=== PATIENT | female | born 1960 | race Caucasian/White ===

== ENCOUNTER 2022-07-25 06:27 | Day surgery (SDC) | payer BC ==
[2022-07-24 09:52] VITALS: BMI 28.3
[2022-07-25] MEDS ORDERED: Lidocaine 1% (PF) 30 ML VIAL ONE (07:11)
[2022-07-25] MEDS ORDERED: Midazolam HCl 2 mg/2 ml Vial ONE (07:59)
[2022-07-25] MEDS ORDERED: FENTANYL 50 MCG/ML 1 ML VIAL ONE (08:00)
[2022-07-25] MEDS ORDERED: Metoprolol Tartrate 5 MG/5 ML VIAL ONE (08:16)
[2022-07-25] MEDS ORDERED: Ondansetron PF 4 MG/2 ML Vial ONE (08:24)
[2022-07-25] MEDS ORDERED: Nitroglycerin 100MG/250ML BOT 250 ML ONE (08:37)
[2022-07-25] MEDS ORDERED: Acetaminophen 325 MG TAB ONE (11:55)
[2022-07-25] MEDS ORDERED: Fentanyl 100 MCG/2 ML VIAL ONE (11:55)
== END 2022-07-25 13:24 | disposition home or self-care (01) ==
LOC: SDC 06:27
PROVIDERS: ATTEND Internal Medicine Cardiovascular Disease
PROC: B2111ZZ Fluoroscopy of Multiple Coronary Arteries using Low Osmolar Contrast (ICD-10-PCS; principal; 2022-07-25)
PROC: 4A023N7 Measurement of Cardiac Sampling and Pressure, Left Heart, Percutaneous Approach (ICD-10-PCS; principal; 2022-07-25)
DX: R07.89 Other chest pain (principal); E78.2 Mixed hyperlipidemia; I10 Essential (primary) hypertension; K21.9 Gastro-esophageal reflux disease without esophagitis; Z87.891 Personal history of nicotine dependence; Z79.82 Long term (current) use of aspirin; Z79.899 Other long term (current) drug therapy; Z88.1 Allergy status to other antibiotic agents; Z88.2 Allergy status to sulfonamides; Z88.5 Allergy status to narcotic agent; Z88.6 Allergy status to analgesic agent
CPT/HCPCS: 93458; 99152; 99153; J2001; J2250; J2405; J3010

== ENCOUNTER 2022-09-12 09:43 | Outpatient (CLI) | payer BC | END 2022-09-12 09:44 | disposition home or self-care (01) | LOC: BICRAD 09:43 | PROVIDERS: ATTEND Nurse Practitioner Family | DX: R06.00 Dyspnea, unspecified (principal) | CPT/HCPCS: 71046 ==